=== PATIENT | male | born 1990 | race Caucasian/White ===

== ENCOUNTER 2019-01-21 13:15 | Emergency (ER) | payer MEDICAID ==
[~2019-01-21] VITALS: Ht 177.8 cm; Wt 75.0 kg
[2019-01-21 13:57] VITALS: BP 109/63
[2019-01-21] MEDS ORDERED: TETANUS, DIPHTHERIA, PERTUSSIS VAC/PF 0.5ML (>7YR OLD) IM ONE (14:30)
[2019-01-21] MEDS ORDERED: BACITRACIN ZINC OINT UDPKT TOP ONE (14:30)
[2019-01-21] MEDS ORDERED: LIDOCAINE HCL/PF 1% 10 MG/ML 5ML VIAL IJ ONE (14:30)
== END 2019-01-21 15:32 | disposition home or self-care (01) ==
LOC: ER 13:15
DX: S61.412A Laceration without foreign body of left hand, initial encounter (principal); W31.82XA Contact with other commercial machinery, initial encounter; Y93.89 Activity, other specified; Y92.9 Unspecified place or not applicable; Z98.890 Other specified postprocedural states
CPT/HCPCS: 99283; A4217; J3490; Z7610